=== PATIENT | male | born 1980 | race Asian ===

== ENCOUNTER → 2020-04-05 | Outpatient (CLI) | payer OTHER ==
--- NOTE | 2020-04-06 02:20 | MR ---
EXAMINATION TYPE: MR brain wo/w con DATE OF EXAM: 04/05/2020 COMPARISON: None HISTORY: Headache CONTRAST: Standard multiplanar, multisequence MRI departmental protocol utilizing 7.5 mL intravenous Gadavist g adolinium contrast. Ventricles and sulci appear normal. There is no mass effect nor midline shift. There is no sign of in tracranial hemorrhage. The calvarium is intact. There is no evidence of cerebral edema. The rust-whit e matter structures have fairly normal signal pattern. There is a single 5 mm focus of increased sign al in the white matter of the right posterior temporal lobe. Diffusion images show no evidence of cor tical infarct. The brainstem is intact. Cerebellum appears normal. Corpus callosum appears normal. Th ere is some minimal mucosal thickening in the ethmoid air cells. There is normal enhancement of the venous sinuses. Sella turcica appears normal. IMPRESSION: Single white matter high signal focus right posterior temporal lobe of uncertain significance. Otherw ise negative exam. This could be focus of small vessel ischemia. No evidence of cortical infarct. No evidence of intracranial mass.
== END | disposition home or self-care (01) ==
LOC: RADMRIMAIN 08:01
PROVIDERS: ATTEND Family Medicine
DX: R51.9 Headache, unspecified (principal)
CPT/HCPCS: 70553; A9585